=== PATIENT | female | born 1965 | race Caucasian/White ===

== ENCOUNTER 2020-08-29 20:17 | Observation (INO) ==
[2020-08-29] MEDS ORDERED: ONDANSETRON 4 MG/2 ML VIAL IV STA (21:50)
[2020-08-29] MEDS ORDERED: KETOROLAC 30 MG/1 ML VIAL IV STA (21:50)
[2020-08-29] MEDS ORDERED: SODIUM CHLORIDE 0.9% 1,000 ML IV STA (21:50)
[2020-08-29 22:35] LABS: Basophils % 0.2 % (0.0-0.8); Eosinophils % 0.1 % (0.00-10.9); Hematocrit 39.6 VOL% (35.7-47.0); Hemoglobin 13.3 GM/DL (12.0-16.0); Immature Granulocytes % 0.2 %; Immature Granulocytes Absolute 0.03 #; Lymphocytes # 0.6 10*3/uL (1.4-4.0); Lymphocytes % 5.1 % (21.3-54.2); Mean Corpuscular HGB Conc 33.6 GM/DL (32-36); Mean Corpuscular Volume 92.7 FL (87-102); Monocytes % 5.4 % (1.7-12.7); Platelet Count 227 T/CUMM (130-400); Red Blood Count 4.27 MC/CUMM (3.8-5.5); Red Cell Distribution Width 13.9 % (9.3-17.3); White Blood Count 12.6 T/CUMM (4-12)
[2020-08-29 22:40] LABS: Bacteria,Urine Occasional /HPF (Few); Bilirubin,Urine Negative (Negative); Blood, Urine Negative (Negative); Glucose,Urine (UA) Negative (Negative); Ketones,Urine 5 mg/dL (Negative); Mucus,Urine Moderate /LPF (Occasional); Nitrite,Urine Negative (Negative); Protein,Urine Negative; RBC,Urine 2 /HPF (0-4); Squamous Epithelial Cell,Urine Occasional /HPF (0-10); Urine Appearance CLEAR (Clear); Urine Color Yellow (Yellow); Urine Specific Gravity 1.019 (1.001-1.035); Urine Urobilinogen < 2.0 EU/DL (0.2-1.0)
[2020-08-29 23:04] LABS: Albumin 3.5 G/DL (3.4-5.0); Bilirubin,Total 0.5 MG/DL (0.20-1.00); Calcium 8.6 MG/DL (8.5-10.1); Osmolality,Calculated 271.8 MOS/KG (273-304); Potassium 4.2 MMOL/L (3.5-5.1); Total Protein 7.2 G/DL (6.4-8.2)
[2020-08-30] MEDS ORDERED: MORPHINE 2 MG/1 ML SYRINGE IV PRN (01:53)
[2020-08-30] MEDS ORDERED: ONDANSETRON 4 MG/2 ML VIAL IV PRN ×3 (01:53→10:45)
[2020-08-30] MEDS ORDERED: PIPERACILLIN/TAZOBACTAM 3,375 MG in SODIUM CHLORIDE 0.9% 100 ML IV STA (01:55)
[2020-08-30] MEDS ORDERED: ONDANSETRON 4 MG/2 ML VIAL IV ONE (01:55)
[2020-08-30] MEDS ORDERED: MORPHINE 2 MG/1 ML SYRINGE IV STA (01:55)
[2020-08-30] MEDS ORDERED: DEXTROSE 5% NACL 0.45% 1,000 ML IV SCH (02:00)
[2020-08-30] MEDS ORDERED: VENLAFAXINE XR 75 MG CAPSULE PO ONE ×2 (02:03→02:06)
[2020-08-30 04:31] LABS: Basophils % 0.3 % (0.0-0.8); Eosinophils % 0.1 % (0.00-10.9); Hemoglobin 13.1 GM/DL (12.0-16.0); Immature Granulocytes % 0.4 %; Immature Granulocytes Absolute 0.04 #; Lymphocytes % 10.4 % (21.3-54.2); Mean Corpuscular HGB Conc 33.6 GM/DL (32-36); Mean Corpuscular Volume 93.3 FL (87-102); Mean Platelet Volume 10.4 FL (9.6-12.0); Monocytes % 6.7 % (1.7-12.7); Neutrophils % 82.1 % (38.7-73.9); Platelet Count 224 T/CUMM (130-400); Red Blood Count 4.18 MC/CUMM (3.8-5.5); White Blood Count 9.9 T/CUMM (4-12)
[2020-08-30 04:58] LABS: Albumin 3.1 G/DL (3.4-5.0); Bilirubin,Total 1.3 MG/DL (0.20-1.00); Calcium 8.4 MG/DL (8.5-10.1); Osmolality,Calculated 275.5 MOS/KG (273-304); Potassium 3.7 MMOL/L (3.5-5.1); Total Protein 6.8 G/DL (6.4-8.2)
[2020-08-30] MEDS ORDERED: ROCURONIUM 50 MG/5 ML VIAL IV ONE (07:54)
[2020-08-30] MEDS ORDERED: LIDOCAINE 1%/EPI INJ 20 ML VIAL ONE (07:54)
[2020-08-30] MEDS ORDERED: LIDOCAINE 2% 5 ML VIAL ONE (07:54)
[2020-08-30] MEDS ORDERED: SUCCINYLCHOLINE 200 MG/10 ML VIAL ONE (07:54)
[2020-08-30] MEDS ORDERED: fentaNYL 100 MCG/2 ML VIAL ONE (07:54)
[2020-08-30] MEDS ORDERED: propofoL 200 MG/20 ML VIAL IV ONE (07:54)
[2020-08-30] MEDS ORDERED: DEXAMETHASONE 4 MG/1 ML VIAL ONE (07:54)
[2020-08-30] MEDS ORDERED: BUPIVACAINE MPF 0.25% 30 ML VIAL ONE (07:54)
[2020-08-30] MEDS ORDERED: ONDANSETRON 4 MG/2 ML VIAL ONE (07:54)
[2020-08-30] MEDS ORDERED: SEVOFLURANE 1 UNIT/15 MINUTE INH ONE ×3 (07:54→09:11)
[2020-08-30] MEDS ORDERED: TISSUE ADHESIVE 1 EACH APPLICATOR TOP ONE (09:04)
[2020-08-30] MEDS ORDERED: LABETALOL 20 MG/4 ML SYRINGE IV ONE (09:04)
[2020-08-30] MEDS ORDERED: GLYCOPYRROLATE 0.4 MG/2 ML VIAL ONE (09:06)
[2020-08-30] MEDS ORDERED: NEOSTIGMINE 10 MG/10 ML VIAL ONE (09:06)
[2020-08-30] MEDS ORDERED: HYDROmorphone 2 MG/1 ML VIAL IV PRN ×3 (09:15→10:45)
[2020-08-30] MEDS ORDERED: PROMETHAZINE INJ 25 MG in SODIUM CHLORIDE 0.9% 50 ML IV PRN (09:23)
[2020-08-30] MEDS ORDERED: diphenhydrAMINE 50 MG/1 ML VIAL IV PRN (09:23)
[2020-08-30] MEDS ORDERED: MEPERIDINE 25 MG/1 ML VIAL IV PRN (09:23)
[2020-08-30] MEDS ORDERED: KETOROLAC 30 MG/1 ML VIAL ONE (09:29)
[2020-08-30] MEDS: HYDROmorphone 2 MG/1 ML VIAL IV PRN ×4 (09:35→09:50)
[2020-08-30] MEDS: PANTOPRAZOLE 40 MG VIAL IV SCH (09:46)
[2020-08-30] MEDS: PIPERACILLIN/TAZOBACTAM 3,375 MG in SODIUM CHLORIDE 0.9% 100 ML IV SCH ×2 (09:46→17:17)
[2020-08-30] MEDS ORDERED: KETOROLAC 15 MG/1 ML VIAL IV PRN (10:45)
[2020-08-30] MEDS ORDERED: ACETAMINOPHEN 325 MG TABLET PO PRN (10:45)
[2020-08-30] MEDS: LACTATED RINGERS 1,000 ML IV SCH (12:30)
[2020-08-31] MEDS: LACTATED RINGERS 1,000 ML IV SCH ×2 (02:55→04:26)
[2020-08-31] MEDS: PIPERACILLIN/TAZOBACTAM 3,375 MG in SODIUM CHLORIDE 0.9% 100 ML IV SCH ×2 (02:56→10:05)
[2020-08-31 05:46] LABS: Basophils % 0.1 % (0.0-0.8); Hematocrit 32.3 VOL% (35.7-47.0); Hemoglobin 10.6 GM/DL (12.0-16.0); Immature Granulocytes % 0.3 %; Immature Granulocytes Absolute 0.02 #; Lymphocytes % 14.2 % (21.3-54.2); Mean Corpuscular HGB Conc 32.8 GM/DL (32-36); Mean Corpuscular Volume 95.3 FL (87-102); Mean Platelet Volume 10.4 FL (9.6-12.0); Neutrophils % 78.4 % (38.7-73.9); Platelet Count 186 T/CUMM (130-400); Red Blood Count 3.39 MC/CUMM (3.8-5.5); Red Cell Distribution Width 14.2 % (9.3-17.3)
[2020-08-31 06:02] LABS: Calcium 8.1 MG/DL (8.5-10.1); Osmolality,Calculated 280.1 MOS/KG (273-304); Potassium 3.5 MMOL/L (3.5-5.1)
[2020-08-31] MEDS: PANTOPRAZOLE 40 MG VIAL IV SCH (10:05)
[2020-08-31 15:49] VITALS: BP 108/65
== END 2020-08-31 16:30 | disposition home or self-care (01) ==
LOC: N.ED 20:17 → N.EDINP 20:17 → N.4E 08-30 08:00
PROVIDERS: ADMIT Student in an Organized Health Care Education/Training Program; ATTEND Student in an Organized Health Care Education/Training Program